=== PATIENT | female | born 1990 | race Caucasian/White ===

== ENCOUNTER 2024-10-13 11:55 | Emergency (ER) | payer MEDICAID ==
[~2024-10-13] VITALS: Ht 162.5 cm; Wt 127.5 kg
[2024-10-13] MEDS ORDERED: LEVOTHYROXINE50 MCG PO (12:19)
[2024-10-13] MEDS ORDERED: ALBUTEROL SULFATE HF INH (12:20)
[2024-10-13] MEDS ORDERED: GABAPENTIN100 M2 PO (12:20)
[2024-10-13] MEDS ORDERED: VENLAFAXINE HY150 M2 PO (12:21)
[2024-10-13] MEDS ORDERED: FLUTICASONE-SAL12 GM INH (12:21)
[2024-10-13] MEDS ORDERED: GOOD NEIGHBOR L10 MG PO (12:21)
[2024-10-13] MEDS ORDERED: HYDROXYZINE PAM25 M1 PO (12:21)
[2024-10-13] MEDS ORDERED: PROPRANOLOL HCL40 MG PO (12:22)
[2024-10-13 12:41] LABS: BILIRUBIN Negative (Negative); BLOOD Negative (Negative); CLARITY Clear (Clear); COLOR Yellow (Yellow); KETONE Negative (Negative); LEUKO ESTERASE Negative (Negative); NITRITE Negative (Negative); PH 7.0 (4.5-8.0); SPECIFIC GRAVITY 1.015 (1.001-1.030); UROBILINOGEN 1.0 E.U./dl (0.0-1.0)
[2024-10-13 12:52] LABS: BACTERIA TRACE
[2024-10-13 13:09] LABS: BASO # 0.0 10*3/uL (0.0-0.1); BASO % 0.4 % (0.0-1.0); EOS # 0.7 10*3/uL (0.0-0.4); EOS % 6.1 % (1.0-4.0); MEAN CELL VOLUME 87.4 fl (81.0-99.0); MEAN CORPUSCULAR HGB 28.0 pg (27.0-31.0); MEAN PLATELET VOLUME 8.6 fl (9.6-12.3); MONO # 0.6 10*3/uL (0.1-1.0); MONO % 5.0 % (3.0-9.0); NEUT # 7.3 10*3/uL (2.3-7.9); NEUT % 65.4 % (47.0-73.0); NUCLEATED RED BLOOD CELL 0.0 % (0.0-0.0); NUCLEATED RED BLOOD CELL 0.0 10*3/uL (0.0-0.0); PLATELET COUNT AUTOMATED 331 10*3/uL (130-400); RED CELL DISTRI WIDTH 13.7 % (0-14.5)
[2024-10-13 13:30] LABS: BUN 9 mg/dl (9-23); SGPT/ALT 102 U/L (5-49)
[2024-10-13] MEDS ORDERED: ACETAMINOPHEN 100 ML IV ONE (13:30)
== END 2024-10-13 14:57 | disposition home or self-care (01) ==
LOC: ED 11:55
PROVIDERS: Nurse Practitioner Family
DX: G89.29 Other chronic pain (principal); R10.84 Generalized abdominal pain; D72.829 Elevated white blood cell count, unspecified; R35.0 Frequency of micturition; N83.209 Unspecified ovarian cyst, unspecified side; Z88.6 Allergy status to analgesic agent; Z88.1 Allergy status to other antibiotic agents